=== PATIENT | female | born 1960 | race Caucasian/White ===

== ENCOUNTER 2022-12-03 13:23 | Emergency (ER) | payer OTHER ==
[~2022-12-03] VITALS: Ht 162.6 cm; Wt 108.9 kg
--- NOTE | 2022-12-03 13:25 | NUR ---
MISTI TIWARI with c/o abd pain. Pt states she is a [employer] member, she started a diet program through [employer] about a week ago and started taking diet pills. Pt to room 5A via EMS suzy.
[2022-12-03] MEDS ORDERED: ONDANSETRON 4 MG/2 ML VIAL IV ONE (13:45)
[2022-12-03] MEDS ORDERED: ONDANSETRON 4 MG/2 ML VIAL ONE (13:45)
[2022-12-03] MEDS ORDERED: MORPHINE SULFATE 4 MG/1 ML DISP.SYRIN IV ONE (13:45)
[2022-12-03] MEDS ORDERED: MORPHINE SULFATE 4 MG/1 ML DISP.SYRIN ONE (13:46)
[2022-12-03 14:03] LABS: CREATININE 1.2 mg/dL (0.6-1.3); POTASSIUM 5.1 mmol/L (3.5-5.1)
[2022-12-03] MEDS ORDERED: CLIN300C12 MT (14:08)
[2022-12-03] MEDS ORDERED: TOPI25TA49 MT (14:08)
[2022-12-03] MEDS ORDERED: LISI40TA13 MT (14:08)
[2022-12-03] MEDS ORDERED: ROSU20TA32 MT (14:08)
[2022-12-03] MEDS ORDERED: METF-440 MT (14:08)
[2022-12-03 14:09] LABS: BILIRUBIN,TOTAL 0.4 mg/dL (0.2-1.0); TOTAL PROTEIN, SERUM 7.3 g/dL (6.4-8.2)
[2022-12-03 14:16] LABS: HEMATOCRIT 38.1 % (31.2-41.9); MEAN CORPUSCULAR HEMOGLOBIN 28.1 uug (24.7-32.8); MEAN CORPUSCULAR VOLUME 84.7 fL (75.5-95.3); PLATELET COUNT (AUTO) 307 K/uL (179-408)
[2022-12-03] MEDS ORDERED: IV NORMAL SALINE 250 ML IV ONE (14:26)
[2022-12-03] MEDS ORDERED: IOHEXOL 300MG/ML 100 ML INFUS..BTL ONE (14:26)
[2022-12-03] MEDS ORDERED: SWABABLE VALVE TRANSFER SET EA MC ONE (14:26)
--- NOTE | 2022-12-03 16:30 | NUR ---
Pt tolerated po challenge well.
--- NOTE | 2022-12-03 17:00 | NUR ---
IV removed. Catheter intact and site benign. Pressure and 4x4 gauze applied to site. No bleeding noted.
[2022-12-03 17:12] VITALS: BP 129/74
--- NOTE | 2022-12-03 17:12 | NUR ---
Patient discharged to home in stable condition with . Written and verbal after care instructions given. Patient verbalizes understanding of instructions. Stressed follow up or return to ER for worsening s/s.
== END 2022-12-03 17:14 | disposition home or self-care (01) ==
LOC: ER 13:23
DX: R10.13 Epigastric pain (principal); I10 Essential (primary) hypertension; E11.9 Type 2 diabetes mellitus without complications; Z79.899 Other long term (current) drug therapy; E66.01 Morbid (severe) obesity due to excess calories; Z68.41 Body mass index [BMI] 40.0-44.9, adult; Z88.0 Allergy status to penicillin
CPT/HCPCS: 99285; 74177; 96374; 71045; 96375; 80053; 83690; 85025; 84484; 36415; 93005; J2405; Q9967; J2270; A4663